=== PATIENT | female | born 1965 | race African-American/Black ===

== ENCOUNTER 2017-05-15 17:05 | Emergency (ER) | payer OTHER ==
[~2017-05-15] VITALS: Ht 157.5 cm; Wt 68.0 kg
[~2017-05-15 17:05] MED LIST: LISI-217 PO
[2017-05-15 17:08] VITALS: BP_SYST 125
[2017-05-15 18:05] VITALS: BP_SYST 117
== END 2017-05-15 18:08 | disposition home or self-care (01) ==
LOC: SED 17:05
DX: L73.9 Follicular disorder, unspecified (principal); I10 Essential (primary) hypertension; F12.10 Cannabis abuse, uncomplicated; Z88.6 Allergy status to analgesic agent
CPT/HCPCS: 99283

== ENCOUNTER 2018-02-16 15:10 | Emergency (ER) | payer OTHER ==
[~2018-02-16] VITALS: Ht 157.5 cm; Wt 72.6 kg
[~2018-02-16 15:10] MED LIST changes: +ACYC400T PO; +BIOT5TAB PO; +BUPR75TA20 PO; +CEPH250C PO; +PARO12.520 PO
[2018-02-16 15:30] VITALS: BP_SYST 138
[2018-02-16] MEDS ORDERED: LORATADINE 10 MG TABLET PO ONE (15:45)
[2018-02-16 16:01] VITALS: BP_SYST 138
== END 2018-02-16 16:00 | disposition home or self-care (01) ==
LOC: SED 15:10
DX: S50.861A Insect bite (nonvenomous) of right forearm, initial encounter (principal); F32.9 Major depressive disorder, single episode, unspecified; I10 Essential (primary) hypertension; Z88.5 Allergy status to narcotic agent; Z88.6 Allergy status to analgesic agent; Z79.899 Other long term (current) drug therapy; W57.XXXA Bitten or stung by nonvenomous insect and other nonvenomous arthropods, initial encounter; Y93.89 Activity, other specified; Y92.89 Other specified places as the place of occurrence of the external cause; Y99.8 Other external cause status
CPT/HCPCS: 99282; 99283